=== PATIENT | female | born 1930 | race Caucasian/White ===

== ENCOUNTER 2017-03-28 04:40 | Observation (INO) | payer MEDICARE ==
[~2017-03-28] VITALS: Ht 162.6 cm; Wt 61.8 kg
[2017-03-28] VITALS (11 sets, daily range): BP systolic 128–182; BP diastolic 64–85
--- NOTE | 2017-03-28 05:01 | NUR ---
PT. TO ROOM 10 VIA EMS WITH C/O AWAKINING WITH MIDSTERNAL CP STARTING THIS AM. PT. CP IS RESOLVED OF THIS TIME.
[2017-03-28] MEDS ORDERED: LANOXIN0.125 MG PO (05:09)
[2017-03-28] MEDS ORDERED: LORAZEPAM0.5 MG PO (05:09)
[2017-03-28] MEDS ORDERED: NEXIUM40 M1 PO (05:10)
[2017-03-28] MEDS ORDERED: VERAPAMIL120 M1 PO (05:11)
[2017-03-28] MEDS ORDERED: MICRO-K8 ME1 PO (05:12)
[2017-03-28] MEDS ORDERED: ASPIRIN81 MG PO (05:13)
[2017-03-28 05:30] LABS: HEMATOCRIT 37.1 % (37.0-47.0); IMMATURE GRANULOCYTES 0.2 % (0.0-1.0); MEAN CELL VOLUME 94.4 fL CALC (80.0-100.0); MEAN CORPUSCULAR HGB 30.5 pG CALC (26.0-32.0); MEAN CORPUSCULAR HGB CONC 32.3 g/L CALC (32.0-36.0); NEUT# 3.32 thou/uL (2.00-7.15); RED BLOOD COUNT 3.93 mill/uL (4.20-5.60); RED CELL DISTRI WIDTH 13.4 % (11.5-15.5)
--- NOTE | 2017-03-28 05:42 | NUR ---
Pt resting comfortably with daughters at bedside. 20 gauge Angiocath noted in left A/C, placed by EMS. Flushes and draws without difficulty. Abdomen looks distended. Daughter states that pt has had diarrhea for several days. Pt usually takes Laculose for constipation.
[2017-03-28 05:43] LABS: ALKALINE PHOSPHATASE 100 u/l (38-126); ANION GAP 16 (6-22 (CALC)); BILIRUBIN, TOTAL 0.3 mg/dL (0.0-1.4); BUN 13 mg/dL (8-23); BUN/CREATININE RATIO 13 (12-20 (CALC)); CARBON DIOXIDE 25 mmol/l (22-30); CHLORIDE 106 mmol/l (95-108); GFR 52 ML/MIN (>=60 (CALC)); GFR FOR AFR.AMER. > 60 ML/MIN (>=60 (CALC)); POTASSIUM 3.9 mmol/l (3.5-5.1); SGOT/AST 20 u/l (9-36); SGPT/ALT 23 u/l (11-66); SODIUM 143 mmol/l (137-146); TOTAL PROTEIN 6.2 g/dL (6.3-8.2)
--- NOTE | 2017-03-28 05:53 | NUR ---
Pt continues to rest comfortably with family members in room. Awaiting test results for further determination.
[2017-03-28 05:55] LABS: MYOGLOBIN 47 ng/mL (0 - 62)
--- NOTE | 2017-03-28 06:26 | NUR ---
SBAR PRINTED TO FLOOR
--- NOTE | 2017-03-28 06:28 | NUR ---
Pt agrees to be admitted for observation. Family members in agreement with pt. Continues to rest comfortably, no problems or concerns at this time.
--- NOTE | 2017-03-28 06:56 | NUR ---
Pt taked to ICU via cot. Going due to no telemetry units available.
--- NOTE | 2017-03-28 07:00 | NUR ---
female pt received from ER to ICU bed 7 via stretcher accompanied by MEE Chong in stable condition; weight obtained; monitoring attachments explained and connected; pt offers no complaints; will continue to monitor
--- NOTE | 2017-03-28 07:35 | NUR ---
pt awake in bed; multiple family members at bedside; no distress noted; admission assessment completed at this time; pt alert and oriented; denies pain at current; no n/v/diaphoresis noted; c/c of chest pressure ("elephant sitting on chest"), elevated bp, pale, excessive bleching; resp even and unlabored; lungs clear bilat; skin color wnl; ra; hr reg; strong pulses; no edema noted; sr on monitor; abd soft with bs hypoactive; no bm noted per senior writer; pt and daughter admits to last bm 03/25/17; pt admits to voiding without pain or burning; no urine to inspect at this time; #20 intact to lac; no redness or edema noted at site; plan of care explained; pt oriented ot bed and call light system; will continue to monitor closely
--- NOTE | 2017-03-28 08:20 | NUR ---
awake in bed eating breakfast; multiple family members at bedside; pt offers no complaints; sr on monitor; call light within reach; will continue to monitor
--- NOTE | 2017-03-28 10:13 | NUR ---
awake in bed; offers no complaints; daughter at bedside; no distress noted; sr on monitor; iv intact; call light within reach; will continue to monitor
--- NOTE | 2017-03-28 12:14 | NUR ---
awake in bed; multiple family members at bedside; no distress noted; pt offers no complaints; Dr Garg at bedside to discuss plan of care; iv intact; call light within reach; will continue to monitor
[2017-03-28] MEDS ORDERED: ULTRAM50 M1 PO (14:07)
[2017-03-28] MEDS ORDERED: KLOR-CON 88 MEQ PO (14:07)
[2017-03-28] MEDS ORDERED: LASIX 20 MG TAB20 MG PO (14:08)
--- NOTE | 2017-03-28 14:08 | NUR ---
awake in bed; multiple visitors at bedside; no distress noted; pt offers no complaints; iv intact; call light within reach; will continue to monitor
[2017-03-28] MEDS ORDERED: METO25TAB PO (14:09)
[2017-03-28] MEDS ORDERED: PROTONIX40 M2 PO (14:09)
--- NOTE | 2017-03-28 16:00 | NUR ---
awake; assist to chair as per pt request; pt tolerated activity well; iv intact; no redness or edema noted at site; sr on monitor; pt deny needs; family remains at bedside; call light within reach; will continue to monitor
--- NOTE | 2017-03-28 18:32 | NUR ---
awake in bed; conversing with family; no distress noted; pt offers no complaints; iv intact; no redness or edema noted at site; sr on monitor; denies needs; bed in lowest position; call light within reach;
--- NOTE | 2017-03-28 19:03 | NUR ---
PT C/O INTERMITTENT NAUSEA AND NO BM FOR 3 DAYS, NOTIFIED AND NEW ORDER RECEIVED FOR ABDOMINAL XRAY AND SSE.
--- NOTE | 2017-03-28 20:00 | NUR ---
OOB TO W/C WITH STEAY GAIT, DOWN TO RADIOLOGY ACCOMPANIED BY THIS WRITTER FOR ABDOMINAL XRAY, PT'S DAUGHTER ALSO ACCOMPANIED PT.
--- NOTE | 2017-03-28 21:10 | NUR ---
SSE ENEMA ADMINISTERED AT THIS TIME, PT ABLE TO HOLD APROX 250ML OF THE ENEMA FLUID, AFTER APROX 5MINS OOB TO BSC, RESULTING IN MODERATE AMOUNT FORMED BROWN BM, SELENE CARE PROVIDED AND BACK TO BED, CALL LIGHT IN REACH, DAUGHTER AT BED SIDE.
--- NOTE | 2017-03-29 | NUR ---
REPOSITIONING SELF IN BED, DENIES CHEST PAIN OR DISCOMFORT. DAUGHTER AT BED SIDE. CALL LIGHT IN REACH.
--- NOTE | 2017-03-29 04:00 | NUR ---
RESTING ON RIGHT SIDE, RESPIRATIONS EVEN AND UNLABORED, DENIES CHEST PAIN. DAUGHTER AT BED SIDE STATES PT HAS NOT BEEN ABLE TO SLEEP ALL NIGHT. TEMP, 97.8, B/P 141/72, HR 60, O2 SAT 94%. CALL LIGHT IN REACH.
[2017-03-29 05:07] VITALS: BP 141/72
--- NOTE | 2017-03-29 06:10 | NUR ---
C/O HEADACHE 08/20, REQUESTING TYLENOL. TYLENOL 650MG PO PROVIDED AT THIS TIME.
[2017-03-29 06:14] LABS: CHOLESTEROL HDL RATIO 4.8 (<4.4 (CALC))
--- NOTE | 2017-03-29 07:20 | NUR ---
PT IN HIGH ROBERTS POSITION; DAUGHTER IN ROOM; PT A/0 X3; [id number]; DENIES PAIN AT THIS TIME; VS OBTAINED; CALL BOYD WITHIN REACH; WILL CONTINUE TO MONITOR.
[2017-03-29 07:30] VITALS: BP 140/72
--- NOTE | 2017-03-29 08:36 | NUR ---
DR. GROSS IN TO SEE PT; PLAN OF CARE DISCUSSED
--- NOTE | 2017-03-29 10:16 | NUR ---
Discharge instructions given. Patient verbalizes understanding of same. Discharged in stable condition via Wheelchair to Home with family. All belongings sent with pt.
== END 2017-03-29 10:10 | disposition home health service (06) ==
LOC: ED 04:40 → ED-I 06:00 → ED 06:23 → ICU 06:24
PROVIDERS: Emergency Medicine; Internal Medicine; ADMIT Internal Medicine; ATTEND Internal Medicine
DX: R07.9 Chest pain, unspecified (principal); I48.91 Unspecified atrial fibrillation; I10 Essential (primary) hypertension; J44.9 Chronic obstructive pulmonary disease, unspecified; I25.10 Atherosclerotic heart disease of native coronary artery without angina pectoris; F03.90 Unspecified dementia, unspecified severity, without behavioral disturbance, psychotic disturbance, mood disturbance, and anxiety; F32.9 Major depressive disorder, single episode, unspecified; F41.9 Anxiety disorder, unspecified; R53.1 Weakness; R06.02 Shortness of breath; Z85.3 Personal history of malignant neoplasm of breast

== ENCOUNTER → 2017-11-15 | Outpatient (REF) | payer MEDICARE, MEDICAID ==
[~2017-11-15] MED LIST: ASPIRIN81 MG PO; KLOR-CON 88 MEQ PO; LANOXIN0.125 MG PO; LASIX 20 MG TAB20 MG PO; LORAZEPAM0.5 MG PO; METO25TAB PO; MICRO-K8 ME1 PO; NEXIUM40 M1 PO; PROTONIX40 M2 PO; ULTRAM50 M1 PO; VERAPAMIL120 M1 PO
[2017-11-15 09:27] LABS: HEMATOCRIT 41.1 % (37.0-47.0); HEMOGLOBIN 13.2 g/dl (12.0-16.0); MEAN CELL VOLUME 94.1 fL CALC (80.0-100.0); MEAN CORPUSCULAR HGB 30.2 pG CALC (26.0-32.0); MEAN CORPUSCULAR HGB CONC 32.1 g/L CALC (32.0-36.0); RED BLOOD COUNT 4.37 mill/uL (4.20-5.60); RED CELL DISTRI WIDTH 13.5 % (11.5-15.5)
[2017-11-15 10:08] LABS: ALKALINE PHOSPHATASE 74 u/l (38-126); ANION GAP 14 (6-22 (CALC)); BILIRUBIN, TOTAL 0.5 mg/dL (0.0-1.4); BUN 15 mg/dL (8-23); BUN/CREATININE RATIO 16 (12-20 (CALC)); CARBON DIOXIDE 29 mmol/l (22-30); CHLORIDE 103 mmol/l (95-108); CREATININE 0.9 mg/dL (0.5-1.0); GFR 59 ML/MIN (>=60 (CALC)); GFR FOR AFR.AMER. > 60 ML/MIN (>=60 (CALC)); POTASSIUM 4.3 mmol/l (3.5-5.1); SGOT/AST 22 u/l (9-36); SODIUM 142 mmol/l (137-146); TOTAL PROTEIN 6.7 g/dL (6.3-8.2)
== END | disposition home or self-care (01) ==
LOC: LAB 08:17
PROVIDERS: ATTEND Internal Medicine
DX: F41.9 Anxiety disorder, unspecified (principal); I10 Essential (primary) hypertension; I48.0 Paroxysmal atrial fibrillation; E53.8 Deficiency of other specified B group vitamins